=== PATIENT | female | born 1990 ===

== ENCOUNTER 2024-06-10 01:31 | Emergency (ER) | payer OTHER, SELFPAY ==
[2024-06-10 01:34] VITALS: BP 121/79; PULSE 91; RESP 16; TEMP 36.9; O2SAT 96
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
[2024-06-10 03:08] VITALS: BP 125/70; PULSE 75; RESP 16; O2SAT 99
== END 2024-06-10 03:08 | disposition home or self-care (01) ==
PROVIDERS: Emergency Provider Student in an Organized Health Care Education/Training Program
DX: R51.9 Headache, unspecified; V48.0XXA Car driver injured in noncollision transport accident in nontraffic accident, initial encounter
CPT/HCPCS: 99282; 99283